=== PATIENT | male | born 1950 | race Caucasian/White ===

== ENCOUNTER 2016-06-24 05:49 | Inpatient (IN) | payer MEDICARE, OTHER ==
[~2016-06-24 05:49] MED LIST: ASPIR 8181 M1 PO; CPAP; EYEDROP EACH EYE; FISH OIL 1,0001 EAC8 PO; FLEXERIL10 MG PO; GLUCOPHAGE1000 MG PO; GLUCOTROL XL10 M1 PO; HYDROCODON-ACE1 EA15 PO; IMDUR30 MG PO; LANTUS100 UNITS/ SC; LOPID600 M1 PO; METFORMIN HCL1000 M2 PO; MOBIC15 M2 PO; NEURONTIN100 M1 PO; NORCO 5/325 TAB1 TAB PO; PRINIVIL10 M1 PO; TENORMIN25 M1 PO; TRAVATAN Z5 M1 EACH EYE; VITAMIN D1000 UNI3 PO; ZANTAC300 M3 PO
[2016-06-25 06:14] LABS: EOS % 0.3 % (0-7); HCT-HEMATOCRIT 24.6 % (36.0-53.5); HGB-HEMOGLOBIN 8.1 gm/dl (13.5-17.0); IMMATURE GRANULOCYTES ABSOLUTE 0.01 tho/cmm (0-0.03); IMMATURE GRANULOCYTES PERCENT 0.3 % (0-0.3); LYMPH % 6.8 % (20-45); LYMPH ABSOLUTE COUNT 0.2 tho/cmm (0.8-4.5); MCH (MEAN CORPUSCULAR HGB) 30.7 pg (28.0-32.0); MCHC MEAN CORPUSCULAR HGB CONC 32.9 % (32.0-36.0); MCV (MEAN CELL VOLUME) 93.2 fl (82.0-96.0); MEAN PLATELET VOLUME 8.9 cmc (9.4-12.4); MONO % 5.2 % (0-12); MONOCYTE ABSOLUTE COUNT 0.2 tho/cmm (0.0-1.2); NEUTROPHIL ABSOLUTE COUNT 2.8 tho/cmm (1.6-8.0); NEUTROPHIL-AUTOMATED 2.8 tho/cmm (1.6-8.0); NEUTROPHILS % 87.4 % (40-80); PLATELET COUNT 103 tho/cmm (150-450); RED BLOOD COUNT 2.64 mil/cmm (4.40-5.70); RED CELL DISTRIBUTION WIDTH 15.7 % (12.4-16.4); WHITE BLOOD COUNT 3.2 tho/cmm (4.0-10.0)
[2016-06-25 06:28] LABS: ANION GAP 10 mmol/L (0-20); BLOOD UREA NITROGEN 16 mg/dl (6-24); CALCIUM 7.7 mg/dl (8.5-10.5); CARBON DIOXIDE-VENOUS 25 mmol/L (22-32); CHLORIDE 108 mmol/l (96-110); CREATININE 0.86 mg/dl (0.60-1.30); GLUCOSE 111 mg/dL (70-110); MAGNESIUM 1.7 mg/dl (1.3-2.6); POTASSIUM 3.9 mmol/L (3.7-5.1); SODIUM 139 mmol/L (135-145); eGFR VALUE FOR BLACK >90 mL/Min
--- NOTE | 2016-06-25 21:04 | NUR ---
VIRTUAL CARE NOTE: ASSESSMENT DEFERRED. PT SLEEPING. WILL CONTINUE WITH CHART REVIEW.
--- NOTE | 2016-06-26 13:30 | NUR ---
virtual care note: checked in with pt. he is in good spirits. at bedside. states he feels ok, has been up for walks. alert/oriented, converses approp. encouraged pt to continue to go for walks, drink fluids, and CDB. he agrees to all of this. his states that he will more than likely be discharged to home on Tuesday. Started on solid foods--will await to see how he does with this. passing gas, having bowel movements. will cont to monitor.
[2016-06-26 19:00] LABS: BASO % 0.3 % (0-2); EOS % 1.3 % (0-7); EOSINOPHIL ABSOLUTE COUNT 0.1 tho/cmm (0.0-0.7); HCT-HEMATOCRIT 20.4 % (36.0-53.5); HGB-HEMOGLOBIN 6.8 gm/dl (13.5-17.0); LYMPH % 3.3 % (20-45); LYMPH ABSOLUTE COUNT 0.1 tho/cmm (0.8-4.5); MCH (MEAN CORPUSCULAR HGB) 30.9 pg (28.0-32.0); MCHC MEAN CORPUSCULAR HGB CONC 33.3 % (32.0-36.0); MCV (MEAN CELL VOLUME) 92.7 fl (82.0-96.0); MEAN PLATELET VOLUME 8.4 cmc (9.4-12.4); MONOCYTE ABSOLUTE COUNT 0.3 tho/cmm (0.0-1.2); NEUTROPHIL ABSOLUTE COUNT 3.5 tho/cmm (1.6-8.0); NEUTROPHIL-AUTOMATED 3.5 tho/cmm (1.6-8.0); NEUTROPHILS % 88.1 % (40-80); PLATELET COUNT 134 tho/cmm (150-450); RED CELL DISTRIBUTION WIDTH 15.4 % (12.4-16.4)
[2016-06-26 19:13] LABS: ANION GAP 12 mmol/L (0-20); BLOOD UREA NITROGEN 11 mg/dl (6-24); CALCIUM 8.5 mg/dl (8.5-10.5); CARBON DIOXIDE-VENOUS 23 mmol/L (22-32); CHLORIDE 106 mmol/l (96-110); CREATININE 0.94 mg/dl (0.60-1.30); SODIUM 137 mmol/L (135-145); eGFR VALUE FOR BLACK >90 mL/Min
[2016-06-26 19:52] LABS: GLUCOSE 172 mg/dL (70-110)
[2016-06-26 21:24] LABS: BASO % 0.3 % (0-2); EOS % 1.3 % (0-7); HCT-HEMATOCRIT 24.9 % (36.0-53.5); HGB-HEMOGLOBIN 8.2 gm/dl (13.5-17.0); LYMPH % 5.4 % (20-45); LYMPH ABSOLUTE COUNT 0.2 tho/cmm (0.8-4.5); MCH (MEAN CORPUSCULAR HGB) 30.5 pg (28.0-32.0); MCHC MEAN CORPUSCULAR HGB CONC 32.9 % (32.0-36.0); MCV (MEAN CELL VOLUME) 92.6 fl (82.0-96.0); MEAN PLATELET VOLUME 8.7 cmc (9.4-12.4); MONO % 9.5 % (0-12); MONOCYTE ABSOLUTE COUNT 0.3 tho/cmm (0.0-1.2); NEUTROPHIL ABSOLUTE COUNT 2.7 tho/cmm (1.6-8.0); NEUTROPHIL-AUTOMATED 2.7 tho/cmm (1.6-8.0); NEUTROPHILS % 83.5 % (40-80); PLATELET COUNT 104 tho/cmm (150-450); RED BLOOD COUNT 2.69 mil/cmm (4.40-5.70); RED CELL DISTRIBUTION WIDTH 15.4 % (12.4-16.4); WHITE BLOOD COUNT 3.2 tho/cmm (4.0-10.0)
[2016-06-27] MEDS ORDERED: NORCO 10-325 T1 EACH PO (11:40)
== END 2016-06-27 13:30 | DRG 330 ==
LOC: SHSB 05:49 → ORW 08:40 → PACU 15:20 → 5WD 16:38
PROVIDERS: ADMIT Colon & Rectal Surgery
PROC: 0DBN4ZZ Excision of Sigmoid Colon, Percutaneous Endoscopic Approach (ICD-10-PCS; principal; 2016-06-24)
PROC: 0DTP4ZZ Resection of Rectum, Percutaneous Endoscopic Approach (ICD-10-PCS; principal; 2016-06-24)
PROC: 8E0W4CZ Robotic Assisted Procedure of Trunk Region, Percutaneous Endoscopic Approach (ICD-10-PCS; principal; 2016-06-24)
DX: C20 Malignant neoplasm of rectum (principal); D61.818 Other pancytopenia; C34.90 Malignant neoplasm of unspecified part of unspecified bronchus or lung; E66.9 Obesity, unspecified; E11.40 Type 2 diabetes mellitus with diabetic neuropathy, unspecified; D64.9 Anemia, unspecified; I10 Essential (primary) hypertension; G47.30 Sleep apnea, unspecified; Z68.37 Body mass index [BMI] 37.0-37.9, adult; I25.10 Atherosclerotic heart disease of native coronary artery without angina pectoris; K21.9 Gastro-esophageal reflux disease without esophagitis; Z88.8 Allergy status to other drugs, medicaments and biological substances; Z79.82 Long term (current) use of aspirin; Z79.84 Long term (current) use of oral hypoglycemic drugs; Z79.899 Other long term (current) drug therapy; Z23 Encounter for immunization
CPT/HCPCS: C9290; G0009; J0131; J0690; J1335; J1644; J1815; J1885; J2250; J2270; J3010; J7030

== ENCOUNTER 2016-07-07 17:05 | Inpatient (IN) | payer MEDICARE, OTHER ==
[~2016-07-07 17:05] MED LIST changes: +NORCO 10-325 T1 EACH PO
[2016-07-07] MEDS ORDERED: AUGMENTIN 875-1 EAC2 PO (17:34)
[2016-07-07] MEDS ORDERED: PLAVIX75 M1 PO (17:35)
[2016-07-07] MEDS ORDERED: COREG3.125 M1 PO (17:37)
[2016-07-07 20:12] LABS: BASO % 0.3 % (0-2); EOS % 1.7 % (0-7); EOSINOPHIL ABSOLUTE COUNT 0.1 tho/cmm (0.0-0.7); HCT-HEMATOCRIT 25.9 % (36.0-53.5); HGB-HEMOGLOBIN 8.4 gm/dl (13.5-17.0); IMMATURE GRANULOCYTES ABSOLUTE 0.01 tho/cmm (0-0.03); IMMATURE GRANULOCYTES PERCENT 0.3 % (0-0.3); LYMPH % 12.9 % (20-45); LYMPH ABSOLUTE COUNT 0.4 tho/cmm (0.8-4.5); MCHC MEAN CORPUSCULAR HGB CONC 32.4 % (32.0-36.0); MCV (MEAN CELL VOLUME) 89.3 fl (82.0-96.0); MEAN PLATELET VOLUME 8.9 cmc (9.4-12.4); MONO % 9.4 % (0-12); MONOCYTE ABSOLUTE COUNT 0.3 tho/cmm (0.0-1.2); NEUTROPHIL ABSOLUTE COUNT 2.2 tho/cmm (1.6-8.0); NEUTROPHIL-AUTOMATED 2.2 tho/cmm (1.6-8.0); NEUTROPHILS % 75.4 % (40-80); PLATELET COUNT 136 tho/cmm (150-450); RED CELL DISTRIBUTION WIDTH 14.7 % (12.4-16.4); WHITE BLOOD COUNT 2.9 tho/cmm (4.0-10.0)
[2016-07-07 20:28] LABS: ALB/GLOB RATIO 0.7 (0.8-2.0); ALBUMIN 3.1 g/dl (3.5-5.0); ALKALINE PHOSPHATASE 49 U/L (33-138); ALT/SGPT 12 U/L (12-78); ANION GAP 13 mmol/L (0-20); AST/SGOT 10 U/L (10-40); BILIRUBIN,TOTAL 0.4 mg/dl (0.0-1.5); BLOOD UREA NITROGEN 11 mg/dl (6-24); CARBON DIOXIDE-VENOUS 24 mmol/L (22-32); CHLORIDE 105 mmol/l (96-110); CREATININE 0.75 mg/dl (0.60-1.30); GLUCOSE 95 mg/dL (70-110); SODIUM 138 mmol/L (135-145); eGFR VALUE FOR BLACK >90 mL/Min
[2016-07-08 04:55] LABS: ANION GAP 11 mmol/L (0-20); BLOOD UREA NITROGEN 12 mg/dl (6-24); CALCIUM 8.7 mg/dl (8.5-10.5); CARBON DIOXIDE-VENOUS 26 mmol/L (22-32); CHLORIDE 106 mmol/l (96-110); CREATININE 0.87 mg/dl (0.60-1.30); GLUCOSE 99 mg/dL (70-110); POTASSIUM 3.9 mmol/L (3.7-5.1); SODIUM 139 mmol/L (135-145); eGFR VALUE FOR BLACK >90 mL/Min
[2016-07-08 05:37] LABS: BASO % 0.4 % (0-2); EOS % 1.5 % (0-7); HCT-HEMATOCRIT 24.2 % (36.0-53.5); HGB-HEMOGLOBIN 7.9 gm/dl (13.5-17.0); IMMATURE GRANULOCYTES ABSOLUTE 0.01 tho/cmm (0-0.03); IMMATURE GRANULOCYTES PERCENT 0.4 % (0-0.3); LYMPH % 9.1 % (20-45); LYMPH ABSOLUTE COUNT 0.2 tho/cmm (0.8-4.5); MCH (MEAN CORPUSCULAR HGB) 29.6 pg (28.0-32.0); MCHC MEAN CORPUSCULAR HGB CONC 32.6 % (32.0-36.0); MCV (MEAN CELL VOLUME) 90.6 fl (82.0-96.0); MEAN PLATELET VOLUME 9.1 cmc (9.4-12.4); MONO % 9.1 % (0-12); MONOCYTE ABSOLUTE COUNT 0.2 tho/cmm (0.0-1.2); NEUTROPHIL ABSOLUTE COUNT 2.1 tho/cmm (1.6-8.0); NEUTROPHIL-AUTOMATED 2.1 tho/cmm (1.6-8.0); NEUTROPHILS % 79.5 % (40-80); PLATELET COUNT 136 tho/cmm (150-450); RED BLOOD COUNT 2.67 mil/cmm (4.40-5.70); RED CELL DISTRIBUTION WIDTH 14.9 % (12.4-16.4); WHITE BLOOD COUNT 2.7 tho/cmm (4.0-10.0)
[2016-07-08 08:28] LABS: INR 1.2 INR (0.9-1.1); PROTHROMBIN TIME 13.7 SECONDS (9.0-13.6)
[2016-07-08] MEDS ORDERED: FLOMAX0.4 M1 PO (11:25)
[2016-07-08 13:03] LABS: URINE BILIRUBIN NEGATIVE (NEG); URINE BLOOD NEGATIVE (NEG); URINE GLUCOSE (UA) NEGATIVE (NEG); URINE KETONE NEGATIVE (NEG); URINE LEUKOCYTE ESTERASE NEGATIVE (NEG); URINE NITRITE NEGATIVE (NEG); URINE PROTEIN NEGATIVE (NEG); URINE SPECIFIC GRAVITY 1.015 (1.003-1.030)
[2016-07-08 13:11] LABS: URINE APPEARANCE CLEAR; URINE COLOR YELLOW
[2016-07-08 13:14] LABS: URINE EPITHELIAL CELLS RARE /[HPF] (0-10); URINE RBC 0 /[HPF] (0-5); URINE WBC RARE /[HPF] (0-5)
[2016-07-09 05:12] LABS: EOS % 2.5 % (0-7); EOSINOPHIL ABSOLUTE COUNT 0.1 tho/cmm (0.0-0.7); LYMPH % 12.9 % (20-45); LYMPH ABSOLUTE COUNT 0.3 tho/cmm (0.8-4.5); MCH (MEAN CORPUSCULAR HGB) 28.6 pg (28.0-32.0); MCV (MEAN CELL VOLUME) 89.4 fl (82.0-96.0); MEAN PLATELET VOLUME 8.9 cmc (9.4-12.4); MONO % 11.4 % (0-12); MONOCYTE ABSOLUTE COUNT 0.2 tho/cmm (0.0-1.2); NEUTROPHIL ABSOLUTE COUNT 1.5 tho/cmm (1.6-8.0); NEUTROPHIL-AUTOMATED 1.5 tho/cmm (1.6-8.0); NEUTROPHILS % 73.2 % (40-80); PLATELET COUNT 124 tho/cmm (150-450); RED BLOOD COUNT 2.45 mil/cmm (4.40-5.70); RED CELL DISTRIBUTION WIDTH 14.8 % (12.4-16.4)
[2016-07-09 05:16] LABS: HCT-HEMATOCRIT 21.9 % (36.0-53.5)
--- NOTE | 2016-07-09 17:18 | NUR ---
CHECKED IN ON PT AT 1555-HE IS RESTING COMFORTABLY. NO FAMILY CURRENTLY PRESENT IN THE ROOM. NO NEEDS-NO QUESTIONS. WAITING FOR FURTHER INSTRUCTIONS FROM PHYSICIANS REGARDING PLAN OF CARE. ELECTRONIC CHART REVIEWED. WILL CONTINUE TO MONITOR.
--- NOTE | 2016-07-09 19:47 | NUR ---
BOO ROUNDING-PATIENT LAYING IN BED STATING PAIN IS PRETTY MUCH CONTROLLED EXCEPT WHEN WALKING HIS KNEES HURT BUT HE WILL NEED A PAIN PILL PROBABLY PRIOR TO BED. PATIENT HAS NOT HAD A BM YET EVEN THOUGH HE HAS HAD MIRALAX,SENNO, AND A DULCOLAX SUPP. PATIENT EXPRESSED JUST GETTING TIRED OF BEING IN THE HOSPITAL AND ALL THE PROCEDURES AND TESTS. ENC PATIENT TO CONTINUE HANGING IN THERE AND TO AMBULATE AND TO CALL US IF FURTHER QUESTIONS OR CONCERNS OR NEED TO JUST TALK. CHART REVIEWED.
[2016-07-10 04:13] LABS: BASO % 0.7 % (0-2); IMMATURE GRANULOCYTES ABSOLUTE 0.01 tho/cmm (0-0.03); IMMATURE GRANULOCYTES PERCENT 0.7 % (0-0.3); LYMPH % 13.3 % (20-45); LYMPH ABSOLUTE COUNT 0.2 tho/cmm (0.8-4.5); MCV (MEAN CELL VOLUME) 89.5 fl (82.0-96.0); MEAN PLATELET VOLUME 8.3 cmc (9.4-12.4); MONOCYTE ABSOLUTE COUNT 0.2 tho/cmm (0.0-1.2); NEUTROPHILS % 69.3 % (40-80); PLATELET COUNT 90 tho/cmm (150-450); RED BLOOD COUNT 1.81 mil/cmm (4.40-5.70); RED CELL DISTRIBUTION WIDTH 14.8 % (12.4-16.4)
[2016-07-10 04:21] LABS: BLOOD UREA NITROGEN 8 mg/dl (6-24); CARBON DIOXIDE-VENOUS 20 mmol/L (22-32); CHLORIDE 111 mmol/l (96-110); CREATININE 0.64 mg/dl (0.60-1.30); GLUCOSE 135 mg/dL (70-110); SODIUM 144 mmol/L (135-145); eGFR VALUE FOR BLACK >90 mL/Min
[2016-07-10 04:38] LABS: ANION GAP 16 mmol/L (0-20)
[2016-07-10 04:40] LABS: CALCIUM 6.5 mg/dl (8.5-10.5); POTASSIUM 2.9 mmol/L (3.7-5.1)
[2016-07-10 06:34] LABS: EOS % 1.8 % (0-7); LYMPH % 15.3 % (20-45); LYMPH ABSOLUTE COUNT 0.3 tho/cmm (0.8-4.5); MCV (MEAN CELL VOLUME) 91.3 fl (82.0-96.0); MEAN PLATELET VOLUME 8.9 cmc (9.4-12.4); MONO % 8.6 % (0-12); MONOCYTE ABSOLUTE COUNT 0.1 tho/cmm (0.0-1.2); NEUTROPHIL ABSOLUTE COUNT 1.2 tho/cmm (1.6-8.0); NEUTROPHIL-AUTOMATED 1.2 tho/cmm (1.6-8.0); NEUTROPHILS % 74.3 % (40-80); PLATELET COUNT 122 tho/cmm (150-450); RED BLOOD COUNT 2.06 mil/cmm (4.40-5.70); RED CELL DISTRIBUTION WIDTH 14.8 % (12.4-16.4)
[2016-07-10 06:34] LABS: HCT-HEMATOCRIT 16.2 % (36.0-53.5); HGB-HEMOGLOBIN 5.2 gm/dl (13.5-17.0); MCH (MEAN CORPUSCULAR HGB) 28.7 pg (28.0-32.0); MCHC MEAN CORPUSCULAR HGB CONC 32.1 % (32.0-36.0)
[2016-07-10 06:35] LABS: HCT-HEMATOCRIT 18.8 % (36.0-53.5); HGB-HEMOGLOBIN 5.9 gm/dl (13.5-17.0); MCH (MEAN CORPUSCULAR HGB) 28.6 pg (28.0-32.0); MCHC MEAN CORPUSCULAR HGB CONC 31.4 % (32.0-36.0); WHITE BLOOD COUNT 1.6 tho/cmm (4.0-10.0)
[2016-07-10 06:38] LABS: WHITE BLOOD COUNT 1.5 tho/cmm (4.0-10.0)
[2016-07-10 06:38] LABS: ANION GAP 12 mmol/L (0-20); BLOOD UREA NITROGEN 8 mg/dl (6-24); CARBON DIOXIDE-VENOUS 23 mmol/L (22-32); CHLORIDE 112 mmol/l (96-110); CREATININE 0.78 mg/dl (0.60-1.30); GLUCOSE 88 mg/dL (70-110); POTASSIUM 3.6 mmol/L (3.7-5.1); SODIUM 143 mmol/L (135-145); eGFR VALUE FOR BLACK >90 mL/Min
[2016-07-10 06:49] LABS: CALCIUM 8.6 mg/dl (8.5-10.5)
--- NOTE | 2016-07-10 11:10 | NUR ---
VIRTUAL CARE NOTE: PT AWAKE RESTING IN BED, SPOUSE AT BEDSIDE. PT AWAITING BLOOD TRANSFUSION, VERBALIZES FRUSTRATION THAT "NOBODY KNOWS WHERE I'M BLEEDING AT". LABS REVIEWED. DISCUSSED LOW COUNTS POSSIBLE D/T RECENT CHEMOTHERAPY, PLAN TO TRANSFUSE BLOOD AND CONTINUE TO MONITOR BLOOD COUNTS. NURSE INTO START BLOOD TRANSFUSION. PT/SPOUSE DENY FURTHER QUESTIONS. VN WILL CONTINUE TO MONITOR RECORD AND FOLLOW W/ PT.
[2016-07-10 16:20] LABS: BASO % 0.5 % (0-2); EOS % 1.8 % (0-7); IMMATURE GRANULOCYTES ABSOLUTE 0.01 tho/cmm (0-0.03); IMMATURE GRANULOCYTES PERCENT 0.5 % (0-0.3); LYMPH % 13.8 % (20-45); LYMPH ABSOLUTE COUNT 0.3 tho/cmm (0.8-4.5); MCV (MEAN CELL VOLUME) 88.6 fl (82.0-96.0); MEAN PLATELET VOLUME 8.4 cmc (9.4-12.4); MONO % 7.3 % (0-12); MONOCYTE ABSOLUTE COUNT 0.2 tho/cmm (0.0-1.2); NEUTROPHIL ABSOLUTE COUNT 1.7 tho/cmm (1.6-8.0); NEUTROPHIL-AUTOMATED 1.7 tho/cmm (1.6-8.0); NEUTROPHILS % 76.1 % (40-80); PLATELET COUNT 117 tho/cmm (150-450); RED BLOOD COUNT 2.63 mil/cmm (4.40-5.70); WHITE BLOOD COUNT 2.2 tho/cmm (4.0-10.0)
[2016-07-10 16:23] LABS: HCT-HEMATOCRIT 23.3 % (36.0-53.5); HGB-HEMOGLOBIN 7.5 gm/dl (13.5-17.0); MCH (MEAN CORPUSCULAR HGB) 28.5 pg (28.0-32.0); MCHC MEAN CORPUSCULAR HGB CONC 32.2 % (32.0-36.0)
--- NOTE | 2016-07-10 19:25 | NUR ---
VIRTUAL CARE NOTE: ASSESSMENT DEFERRED. PT. SLEEPING.
[2016-07-11 06:21] LABS: BASO % 0.5 % (0-2); EOS % 1.9 % (0-7); HCT-HEMATOCRIT 25.2 % (36.0-53.5); HGB-HEMOGLOBIN 8.2 gm/dl (13.5-17.0); LYMPH % 5.3 % (20-45); LYMPH ABSOLUTE COUNT 0.1 tho/cmm (0.8-4.5); MCH (MEAN CORPUSCULAR HGB) 28.3 pg (28.0-32.0); MCHC MEAN CORPUSCULAR HGB CONC 32.5 % (32.0-36.0); MCV (MEAN CELL VOLUME) 86.9 fl (82.0-96.0); MEAN PLATELET VOLUME 8.7 cmc (9.4-12.4); MONOCYTE ABSOLUTE COUNT 0.3 tho/cmm (0.0-1.2); NEUTROPHIL ABSOLUTE COUNT 1.6 tho/cmm (1.6-8.0); NEUTROPHIL-AUTOMATED 1.6 tho/cmm (1.6-8.0); NEUTROPHILS % 79.3 % (40-80); PLATELET COUNT 111 tho/cmm (150-450); RED CELL DISTRIBUTION WIDTH 16.9 % (12.4-16.4); WHITE BLOOD COUNT 2.1 tho/cmm (4.0-10.0)
--- NOTE | 2016-07-11 09:31 | NUR ---
VIRTUAL CARE NOTE: WOUND CULTURE RESULTS REVIEWED- DISCUSSED W/ DANIEL RN, DR SUMA FORTE AT THIS TIME AND NOTIFIED TO REVIEW ABX THERAPY
--- NOTE | 2016-07-11 19:26 | NUR ---
VIRTURAL CARE ROUND, PT. IN HIS ROOM SITTING ON EDGE OF THE BED. WHEN ASKED HOW HE WAS DOING TODAY, [facility], AND STATES "IT'S HARD TO EXPLAIN." ENCOURAGED TO LET US KNOW IF WE COULD HELP AND TO CALL FOR FUTURE NEEDS. STATES VERBAL UNDERSTANDING.
[2016-07-12 06:46] LABS: BASO % 0.4 % (0-2); EOS % 1.3 % (0-7); HCT-HEMATOCRIT 25.9 % (36.0-53.5); HGB-HEMOGLOBIN 8.5 gm/dl (13.5-17.0); IMMATURE GRANULOCYTES ABSOLUTE 0.01 tho/cmm (0-0.03); IMMATURE GRANULOCYTES PERCENT 0.4 % (0-0.3); LYMPH ABSOLUTE COUNT 0.3 tho/cmm (0.8-4.5); MCH (MEAN CORPUSCULAR HGB) 28.4 pg (28.0-32.0); MCHC MEAN CORPUSCULAR HGB CONC 32.8 % (32.0-36.0); MCV (MEAN CELL VOLUME) 86.6 fl (82.0-96.0); MEAN PLATELET VOLUME 8.7 cmc (9.4-12.4); MONOCYTE ABSOLUTE COUNT 0.2 tho/cmm (0.0-1.2); NEUTROPHIL ABSOLUTE COUNT 1.7 tho/cmm (1.6-8.0); NEUTROPHIL-AUTOMATED 1.7 tho/cmm (1.6-8.0); NEUTROPHILS % 74.9 % (40-80); PLATELET COUNT 113 tho/cmm (150-450); RED BLOOD COUNT 2.99 mil/cmm (4.40-5.70); WHITE BLOOD COUNT 2.3 tho/cmm (4.0-10.0)
[2016-07-12 07:00] LABS: ANION GAP 12 mmol/L (0-20); BLOOD UREA NITROGEN 7 mg/dl (6-24); CALCIUM 8.5 mg/dl (8.5-10.5); CARBON DIOXIDE-VENOUS 23 mmol/L (22-32); CHLORIDE 111 mmol/l (96-110); CREATININE 0.74 mg/dl (0.60-1.30); GLUCOSE 80 mg/dL (70-110); POTASSIUM 3.8 mmol/L (3.7-5.1); SODIUM 142 mmol/L (135-145); eGFR VALUE FOR BLACK >90 mL/Min
[2016-07-12] MEDS ORDERED: SENOKOT-S TABL1 EACH PO (16:39)
[2016-07-12] MEDS ORDERED: INVANZ1 GM IV (16:44)
[2016-07-12] MEDS ORDERED: AMOXICILLIN875 M1 PO (16:46)
[2016-07-12] MEDS ORDERED: STOP HOME MEDICATION (16:51)
--- NOTE | 2016-07-12 17:21 | NUR ---
VIRTUAL CARE NOTE: PT DRESSED RESTING ON BED, SPOUSE AT BEDSIDE. DISCHARGE INSTRUCTIONS GIVEN TO PT, QUESTIONS ANSWERED TO PT AND , NO FURTHER QUESTIONS. PT WILL DC HOME WITH PICC LINE AND WILL HAVE OUT PT IV ABX AT [facility]. INFORMED FLOOR NURSE DC TEACHING DONE.
== END 2016-07-12 17:20 | disposition home health service (06) | DRG 856 ==
LOC: 5WD 17:05
PROVIDERS: Family Medicine; Hospitalist; Internal Medicine Hematology & Oncology; Nurse Practitioner; Physician Assistant; Radiology Diagnostic Radiology; ADMIT Hospitalist
PROC: 5A09357 Assistance with Respiratory Ventilation, Less than 24 Consecutive Hours, Continuous Positive Airway Pressure (ICD-10-PCS; 2016-07-07)
PROC: 0W9J3ZX Drainage of Pelvic Cavity, Percutaneous Approach, Diagnostic (ICD-10-PCS; principal; 2016-07-08)
PROC: 02HV33Z Insertion of Infusion Device into Superior Vena Cava, Percutaneous Approach (ICD-10-PCS; principal; 2016-07-08)
PROC: B548ZZA Ultrasonography of Superior Vena Cava, Guidance (ICD-10-PCS; principal; 2016-07-08)
PROC: 30233N1 Transfusion of Nonautologous Red Blood Cells into Peripheral Vein, Percutaneous Approach (ICD-10-PCS; 2016-07-10)
DX: K68.11 Postprocedural retroperitoneal abscess (principal); I21.4 Non-ST elevation (NSTEMI) myocardial infarction; D61.818 Other pancytopenia; I11.9 Hypertensive heart disease without heart failure; C19 Malignant neoplasm of rectosigmoid junction; B95.2 Enterococcus as the cause of diseases classified elsewhere; N28.89 Other specified disorders of kidney and ureter; K21.9 Gastro-esophageal reflux disease without esophagitis; D49.519 Neoplasm of unspecified behavior of unspecified kidney; E78.5 Hyperlipidemia, unspecified; I25.10 Atherosclerotic heart disease of native coronary artery without angina pectoris; J44.9 Chronic obstructive pulmonary disease, unspecified; B96.6 Bacteroides fragilis [B. fragilis] as the cause of diseases classified elsewhere; Z95.5 Presence of coronary angioplasty implant and graft; E11.40 Type 2 diabetes mellitus with diabetic neuropathy, unspecified; E66.01 Morbid (severe) obesity due to excess calories; Z68.37 Body mass index [BMI] 37.0-37.9, adult
CPT/HCPCS: C1751; J0610; J1815; J2250; J2543; J2997; J3010; J7030; P9016; P9040